=== PATIENT | female | born 1945 | race Caucasian/White ===

== ENCOUNTER 2017-10-30 05:53 | Emergency (ER) | payer MEDICARE ==
--- NOTE | 2017-10-30 06:26 | Emergency Department Record ---
History of Present Illness - General Chief Complaint: Palpitations Stated Complaint: PALPITATIONS Time Seen by Provider: 10/30/17 06:09 Source: Patient Mode of Arrival: Ambulatory Limitations: No limitations - History of Present Illness Initial Comments: pt woke an hour ago and felt like her heart was racing. no cp. pt has not had this happen before MD Complaint: "Heart racing", Palpitations Onset/Timin -: Hour(s) Context: Awoke with symptoms Associated Symptoms: Denies other symptoms - Related Data Home Medications Medication Instructions Recorded Confirmed Last Taken Magnesium Oxide [Magnesium] 500 mg PO DAILY 10/30/17 10/30/17 10/29/17 Allergies Allergy/AdvReac Type Severity Reaction Status Date / Time No Known Drug Allergies Allergy Verified 04/26/15 20:34 Travel Screening - Travel/Exposure Within Last 30 Days Have you traveled within the last 30 days?: No - Travel Symptoms Symptom Screening: Fatigue, Diarrhea Review of Systems Reviewed: No additional complaints except as noted below Constitutional: Reports: As per HPI. Denies: Chills, Fever, Malaise, Night sweats, Weakness, Weight change Eyes: Reports: As per HPI. Denies: Eye discharge, Eye pain, Photophobia, Vision change ENT: Reports: As per HPI. Denies: Congestion, Dental pain, Ear pain, Epistaxis , Hearing loss, Throat pain Respiratory: Reports: As per HPI. Denies: Cough, Dyspnea, Hemoptysis, Stridor, Wheezes Cardiovascular: Reports: As per HPI. Denies: Arrhythmia, Chest pain, Dyspnea on exertion, Edema, Murmurs, Orthopnea, Palpitations, Paroxysmal nocturnal dyspnea, Rheumatic Fever, Syncope Endocrine: Reports: As per HPI. Denies: Fatigue, Heat or cold intolerance, Polydipsia, Polyuria Gastrointestinal: Reports: As per HPI. Denies: Abdominal pain, Constipation, Diarrhea, Hematemesis, Hematochezia, Melena, Nausea, Vomiting Genitourinary: Reports: As per HPI. Denies: Abnormal menses, Discharge, Dyspareunia, Dysuria, Frequency, Hematuria, Incontinence, Retention, Urgency Musculoskeletal: Reports: As per HPI. Denies: Arthralgia, Back pain, Gout, Joint swelling, Myalgia, Neck pain Skin: Reports: As per HPI. Denies: Bruising, Change in color, Change in hair/ nails, Lesions, Pruritus, Rash Neurological: Reports: As per HPI. Denies: Abnormal gait, Confusion, Headache, Numbness, Paresthesias, Seizure, Tingling, Tremors, Vertigo, Weakness Psychiatric: Reports: As per HPI. Denies: Anxiety, Auditory hallucinations, Depression, Homicidal thoughts, Suicidal thoughts, Visual hallucinations Hematological/Lymphatic: Reports: As per HPI. Denies: Anemia, Blood Clots, Easy bleeding, Easy bruising, Swollen glands Past Medical History - SOCIAL HISTORY Smoking Status: Former smoker Alcohol Use: None Drug Use: None - RESPIRATORY Hx Respiratory Disorders: No - CARDIOVASCULAR Hx Cardio Disorders: Yes Hx Hypertension: Yes Hx Palpitations: Yes (wore monitor, no findings) - NEURO Hx Neuro Disorders: No - GI Hx GI Disorders: No - Hx Genitourinary Disorders: No - ENDOCRINE Hx Endocrine Disorders: Yes Hx Diabetes: Yes - MUSCULOSKELETAL Hx Musculoskeletal Disorders: No - PSYCH Hx Psych Problems: No - HEMATOLOGY/ONCOLOGY Hx Hematology/Oncology Disorders: No Family Medical History Any Significant Family History?: Yes Hx Diabetes: Grandparents Hx Heart Disease: Mother Hx Kidney Disease: Mother Physical Exam - General General Appearance: Alert, Oriented x3, Cooperative, Mild distress - Head Head exam: Normal inspection - Eye Eye exam: Normal appearance, PERRL, EOMI Pupils: Normal accommodation - ENT ENT exam: Normal exam, Mucous membranes moist, Normal external ear exam, Normal orophraynx Ear exam: Normal external inspection. negative: External canal tenderness Nasal Exam: Normal inspection. negative: Discharge, Sinus tenderness Mouth exam: Normal external inspection, Tongue normal Teeth exam: Normal inspection. negative: Dental caries Throat exam: Normal inspection. negative: Tonsillar erythema, Tonsillar exudate - Neck Neck exam: Normal inspection, Full ROM. negative: Tenderness - Respiratory Respiratory exam: Normal lung sounds bilaterally. negative: Respiratory distress - Cardiovascular Cardiovascular Exam: Normal heart sounds, Irregular rhythm, Tachycardia - GI/Abdominal GI/Abdominal exam: Soft, Normal bowel sounds. negative: Tenderness - Rectal Rectal exam: Deferred - exam: Deferred - Extremities Extremities exam: Normal inspection, Full ROM, Normal capillary refill. negative: Tenderness - Back Back exam: Reports: Normal inspection, Full ROM. Denies: Muscle spasm, Rash noted, Tenderness - Neurological Neurological exam: Alert, Normal gait, Oriented X3, Reflexes normal - Psychiatric Psychiatric exam: Normal affect, Normal mood - Skin Skin exam: Dry, Intact, Normal color, Warm Course Vital Signs 10/30/17 06:02 Pulse Rate 128 H Respiratory 20 Rate Blood Pressure 123/91 Pulse Ox 94 L Medical Decision Making - Lab Data Result diagrams: 10/30/17 06:04 10/30/17 06:04 Disposition Disposition: Transfer Clinical Impression: New onset atrial fibrillation Disposition: Acute Care [facility] Transfer Transfer To: [facility] Reason For Transfer: new onset afib Accepting Physician: dr box Time Discussed w/Accepting Physician: Forms: Patient Portal Access Quality - Quality Measures Quality Measures: N/A - Blood Pressure Screening Does Patient Have Any of the Following: No Blood Pressure Classification: Hypertensive Reading Systolic Measurement: 123 Diastolic Measurement: 91 Screening for High Blood Pressure: Patient Exclusion, Hx of HTN [[id number]]
[2017-10-30 06:27] LABS: BASO % 0.3 % (0-6); EOS % 3.1 % (0-6); GRAN % 60.4 % (47-80); HEMATOCRIT 37.3 % (35.0-47.0); HEMOGLOBIN 13.1 gm/dl (11.6-16.0); LYMPH % 28.5 % (16-45); MEAN CORPUSCULAR HEMOGLOBIN 29.5 pg (27-33); MEAN CORPUSCULAR HGB CONC 35.1 g/dl (32-36); MONO % 7.7 % (0-9); PLATELET COUNT 213 K/uL (130-400); RED BLOOD COUNT 4.44 M/uL (3.80-5.40); RED CELL DISTRIBUTION WIDTH 14.8 % (11.5-14.5)
[2017-10-30] MEDS ORDERED: DILTIAZEM 25MG/5ML VIAL IV ONE ×2 (06:27→06:30)
[2017-10-30 06:39] LABS: BLOOD UREA NITROGEN 27 mg/dL (8-23)
[2017-10-30 06:40] LABS: CREATININE 0.9 mg/dL (0.5-0.9); EST GLOMERULAR FILTRATION RATE > 60 mL/min
[2017-10-30 06:42] LABS: GLUCOSE,RANDOM 273 mg/dL (74-109)
[2017-10-30 06:45] LABS: CREATINE PHOSPHOKINASE 253 U/L (26-192)
[2017-10-30 06:56] LABS: THYROID STIMULATING HORMONE 4.59 uIU/mL (0.270-4.20)
[2017-10-30 07:01] LABS: INR 0.99; PROTHROMBIN TIME (PATIENT) 10.7 SECONDS (9.5-12.1)
[2017-10-30] MEDS ORDERED: METOPROLOL TART 50 MG TABLET PO ONE (07:11)
[2017-10-30] MEDS ORDERED: RIVAROXABAN 10 MG TABLET PO SCH ×2 (07:15→07:30)
--- NOTE | 2017-10-30 14:49 | RADIOLOGY REPORT ---
EXAM: PORTABLE CHEST HISTORY: PALPITATIONS FOR ONE HOUR. DIZZINESS WITH STANDING. TECHNIQUE: A single mobile upright view of the chest was obtained. Comparison: None. FINDINGS: The heart projects borderline enlarged. No pulmonary venous hypertension is seen. No confluent air space opacity is demonstrated nor is there costophrenic angle blunting or pneumothorax. There are degenerative changes of the visualized spine and shoulder girdles. The aortic knob is atherosclerotic. IMPRESSION: NO EVIDENCE OF ACUTE CARDIOPULMONARY DISEASE. JOB NUMBER: [id number] MTDD
== END 2017-10-30 09:29 | disposition short-term general hospital (02) ==
LOC: ER 05:53
DX: I48.91 Unspecified atrial fibrillation (principal); R42 Dizziness and giddiness; I10 Essential (primary) hypertension; Z87.891 Personal history of nicotine dependence
CPT/HCPCS: 71010; 80048; 82550; 82553; 84443; 84484; 85025; 85610; 85730; 93005; 93010; 96374; 99285